=== PATIENT | male | born 1945 | race Caucasian/White ===

== ENCOUNTER 2021-11-04 08:10 | Day surgery (SDC) | payer OTHER, SELFPAY ==
[~2021-11-04] VITALS: Ht 170.2 cm; Wt 88.0 kg
[2021-11-04] MEDS ORDERED: NS IRRIG SOLN 1000 ML IR ONE (14:00)
[2021-11-04] MEDS ORDERED: ARTICAINE HCL/EPINEPHRINE 4%/1:200,000 BIT 1.7 ML CARTRIDGE IJ ONE (14:00)
[2021-11-04] MEDS ORDERED: NS 250 ML BAG IV ONE (14:00)
[2021-11-04 15:27] VITALS: BP_SYST 147
== END 2021-11-04 14:45 | disposition home or self-care (01) ==
LOC: SDS 08:10 → SMU 08:29 → SDS 14:45
PROVIDERS: ATTEND Dentist General Practice
DX: K05.223 Aggressive periodontitis, generalized, severe (principal); M27.2 Inflammatory conditions of jaws; M85.9 Disorder of bone density and structure, unspecified; G50.1 Atypical facial pain; K04.2 Pulp degeneration; K12.2 Cellulitis and abscess of mouth; I10 Essential (primary) hypertension; E78.5 Hyperlipidemia, unspecified; M89.8X0 Other specified disorders of bone, multiple sites; M26.603 Bilateral temporomandibular joint disorder, unspecified; H92.09 Otalgia, unspecified ear; M79.10 Myalgia, unspecified site; Z87.19 Personal history of other diseases of the digestive system; Z79.899 Other long term (current) drug therapy; Z20.822 Contact with and (suspected) exposure to COVID-19
CPT/HCPCS: 21025; 21215; 21248; 36415; 70140; 87426; C1713 ×2; J7050

== ENCOUNTER 2021-11-18 06:23 | Day surgery (SDC) | payer OTHER, SELFPAY ==
[~2021-11-18] VITALS: Ht 170.2 cm; Wt 81.6 kg
[2021-11-18] MEDS ORDERED: ARTICAINE HCL/EPINEPHRINE 4%/1:200,000 BIT 1.7 ML CARTRIDGE IJ ONE (08:55)
[2021-11-18] MEDS ORDERED: NS 250 ML IV.SOLN IV ONE (08:55)
[2021-11-18] MEDS ORDERED: BENZOCAINE 20% GEL 32 GM BOTTLE MM ONE (08:55)
[2021-11-18] MEDS ORDERED: NS IRRIG SOLN 1000 ML IR ONE (08:55)
[2021-11-18 12:40] VITALS: BP_SYST 146
== END 2021-11-18 09:55 | disposition home or self-care (01) ==
LOC: SDS 06:23
PROVIDERS: ATTEND Dentist General Practice
DX: M27.2 Inflammatory conditions of jaws (principal); K05.6 Periodontal disease, unspecified; I10 Essential (primary) hypertension; E78.5 Hyperlipidemia, unspecified; Z79.899 Other long term (current) drug therapy; Z20.822 Contact with and (suspected) exposure to COVID-19
CPT/HCPCS: 21025; 21215; 21248; 36415; 70140; 87426; C1713 ×2; J7050